=== PATIENT | female | born 1980 | race Caucasian/White ===

== ENCOUNTER → 2017-11-17 | Outpatient (CLI) | payer OTHER ==
[~2017-11-17] MED LIST: Augmentin 875-1 EACH PO; LEVSOD50 PO; MELA3 PO; Verotin-Gr Cap1 EACH PO
== END ==
LOC: OLS 09:58
DX: Z34.82 Encounter for supervision of other normal pregnancy, second trimester (principal); Z3A.27 27 weeks gestation of pregnancy
CPT/HCPCS: 36415; 82947; 82951; 82952

== ENCOUNTER → 2018-01-06 | Outpatient (CLI) | payer OTHER | END | disposition home or self-care (01) | LOC: LAB SHORT 17:25 → LAB 17:25 | DX: Z34.83 Encounter for supervision of other normal pregnancy, third trimester (principal); Z3A.35 35 weeks gestation of pregnancy | CPT/HCPCS: 87081; 87653 ==

== ENCOUNTER 2018-01-12 14:44 | Inpatient (IN) | payer OTHER ==
[~2018-01-12] VITALS: Ht 167.6 cm; Wt 97.1 kg
[~2018-01-12 14:44] MED LIST changes: -LEVSOD50 PO; -MELA3 PO; -Verotin-Gr Cap1 EACH PO
[2018-01-12 16:06] LABS: BASOPHILS ABSOLUTE AUTO 0.02 K/mm3 (0.00-0.23); BASOPHILS PERCENT AUTO 0 % (0-2); EOSINOPHILS ABSOLUTE AUTO 0.01 K/mm3 (0.00-0.68); EOSINOPHILS PERCENT AUTO 0 % (0-6); Hematocrit 35.8 % (33.0-51.0); Hemoglobin 11.9 g/dL (11.5-16.0); IMMATURE GRAN ABSOLUTE AUTO 0.03 K/mm3 (0.00-0.10); IMMATURE GRAN PERCENT AUTO 0 % (0-1); LYMPHOCYTES ABSOLUTE AUTO 1.28 K/mm3 (0.84-5.20); LYMPHOCYTES PERCENT AUTO 14 % (21-46); MONOCYTES ABSOLUTE AUTO 0.32 K/mm3 (0.16-1.47); MONOCYTES PERCENT AUTO 3 % (4-13); Mean Corpuscular HGB 30.5 pg (26.0-34.0); Mean Corpuscular HGB Conc 33.2 g/dL (31.5-36.5); Mean Corpuscular Volume 92 fL (80-100); Mean Platelet Volume 12.4 fL (9.1-12.4); NEUTROPHILS ABSOLUTE AUTO 7.75 K/mm3 (1.96-9.15); NEUTROPHILS PERCENT AUTO 82 % (41-73); Platelet Count 174 K/mm3 (150-400); RDW Coefficient Variation 12.8 % (11.7-14.2); RDW Standard Deviation 42.9 fL (35.1-46.3); White Blood Cell Count 9.41 K/mm3 (4.00-11.30)
[2018-01-12] MEDS ORDERED: Verotin-Gr Cap1 EACH PO (17:22)
[2018-01-12] MEDS ORDERED: LEVSOD50 PO (17:24)
[2018-01-12] MEDS ORDERED: MELA3 PO (19:35)
[2018-01-13 05:30] LABS: BASOPHILS ABSOLUTE AUTO 0.02 K/mm3 (0.00-0.23); BASOPHILS PERCENT AUTO 0 % (0-2); EOSINOPHILS ABSOLUTE AUTO 0.06 K/mm3 (0.00-0.68); EOSINOPHILS PERCENT AUTO 1 % (0-6); Hematocrit 31.5 % (33.0-51.0); Hemoglobin 10.6 g/dL (11.5-16.0); IMMATURE GRAN ABSOLUTE AUTO 0.06 K/mm3 (0.00-0.10); IMMATURE GRAN PERCENT AUTO 1 % (0-1); LYMPHOCYTES ABSOLUTE AUTO 2.82 K/mm3 (0.84-5.20); LYMPHOCYTES PERCENT AUTO 28 % (21-46); MONOCYTES ABSOLUTE AUTO 0.95 K/mm3 (0.16-1.47); MONOCYTES PERCENT AUTO 10 % (4-13); Mean Corpuscular HGB Conc 33.7 g/dL (31.5-36.5); Mean Corpuscular Volume 92 fL (80-100); Mean Platelet Volume 11.8 fL (9.1-12.4); NEUTROPHILS ABSOLUTE AUTO 6.02 K/mm3 (1.96-9.15); NEUTROPHILS PERCENT AUTO 61 % (41-73); Platelet Count 169 K/mm3 (150-400); RDW Coefficient Variation 12.7 % (11.7-14.2); RDW Standard Deviation 42.5 fL (35.1-46.3); Red Blood Cell Count 3.42 M/mm3 (3.80-5.20); White Blood Cell Count 9.93 K/mm3 (4.00-11.30)
== END 2018-01-13 21:00 | disposition home or self-care (01) | DRG 775 ==
LOC: BC 14:44 → OBS 14:44 → BC 15:19
PROVIDERS: Obstetrics & Gynecology
PROC: 10E0XZZ Delivery of Products of Conception, External Approach (ICD-10-PCS; principal; 2018-01-12)
PROC: 0HQ9XZZ Repair Perineum Skin, External Approach (ICD-10-PCS; 2018-01-12)
PROC: 3E0R3BZ Introduction of Anesthetic Agent into Spinal Canal, Percutaneous Approach (ICD-10-PCS; 2018-01-12)
DX: O60.14X0 Preterm labor third trimester with preterm delivery third trimester, not applicable or unspecified (principal); O34.219 Maternal care for unspecified type scar from previous cesarean delivery; O24.420 Gestational diabetes mellitus in childbirth, diet controlled; O70.0 First degree perineal laceration during delivery; Z3A.36 36 weeks gestation of pregnancy; Z37.0 Single live birth; O99.284 Endocrine, nutritional and metabolic diseases complicating childbirth; E03.9 Hypothyroidism, unspecified; Z87.891 Personal history of nicotine dependence
CPT/HCPCS: 36415; 81003; 82947; 85025; J1885; J2590; J3010; J7120

== ENCOUNTER 2021-07-01 17:35 | Inpatient (IN) | payer OTHER ==
[~2021-07-01] VITALS: Ht 167.6 cm; Wt 95.4 kg
[~2021-07-01 17:35] MED LIST changes: +LEVSOD50 PO; +MELA3 PO; +Verotin-Gr Cap1 EACH PO
[2021-07-01 18:10] LABS: BASOPHILS ABSOLUTE AUTO 0.02 K/mm3 (0.00-0.23); BASOPHILS PERCENT AUTO 0 % (0-2); EOSINOPHILS ABSOLUTE AUTO 0.01 K/mm3 (0.00-0.68); EOSINOPHILS PERCENT AUTO 0 % (0-6); Hemoglobin 13.3 g/dL (11.5-16.0); IMMATURE GRAN ABSOLUTE AUTO 0.06 K/mm3 (0.00-0.10); IMMATURE GRAN PERCENT AUTO 1 % (0-1); LYMPHOCYTES ABSOLUTE AUTO 0.88 K/mm3 (0.84-5.20); LYMPHOCYTES PERCENT AUTO 11 % (21-46); MONOCYTES ABSOLUTE AUTO 0.47 K/mm3 (0.16-1.47); MONOCYTES PERCENT AUTO 6 % (4-13); Mean Corpuscular HGB 30.6 pg (26.0-34.0); Mean Corpuscular HGB Conc 33.3 g/dL (31.5-36.5); Mean Corpuscular Volume 92 fL (80-100); Mean Platelet Volume 10.1 fL (9.1-12.4); NEUTROPHILS ABSOLUTE AUTO 6.38 K/mm3 (1.96-9.15); NEUTROPHILS PERCENT AUTO 82 % (41-73); Platelet Count 229 K/mm3 (150-400); RDW Coefficient Variation 11.7 % (11.7-14.2); RDW Standard Deviation 39.8 fL (35.1-46.3); Red Blood Cell Count 4.34 M/mm3 (3.80-5.20); White Blood Cell Count 7.82 K/mm3 (4.00-11.30)
[2021-07-01 18:39] LABS: Alanine Aminotransfer (ALT/SGP 113 U/L (12-78); Albumin, Blood 3.4 g/dL (3.4-5.0); Albumin/Globulin Ratio 0.8 (0.8-1.8); Alk Phos 209 U/L (50-136); Anion Gap 8 mmol/L (6-16); Aspartate Aminotrans (AST/SGOT 112 U/L (12-37); Bilirubin, Total 3.1 mg/dL (0.1-1.0); Blood Urea Nitrogen 4 mg/dL (8-24); Bun/Creatinine Ratio 8.8 (12.0-20.0); CO2, Blood 23 mmol/L (21-32); Chloride, Blood 107 mmol/L (98-108); Creatinine, Blood 0.46 mg/dL (0.40-1.00); Globulin, Blood 4.4 g/dL (2.2-4.0); Glomerular Filtration Rate >60 (60-); Glucose, Blood 94 mg/dL (70-99); Potassium, Blood 3.8 mmol/L (3.5-5.5); Sodium, Blood 138 mmol/L (136-145); Total Protein, Blood 7.8 g/dL (6.4-8.2); Troponin I <0.015 ng/mL (0.000-0.040)
[2021-07-02 04:58] LABS: SARS-Cov-2 (COVID-19) PCR, MMC NEGATIVE (NEGATIVE)
[2021-07-02 05:28] LABS: BASOPHILS ABSOLUTE AUTO 0.01 K/mm3 (0.00-0.23); BASOPHILS PERCENT AUTO 0 % (0-2); EOSINOPHILS ABSOLUTE AUTO 0.06 K/mm3 (0.00-0.68); EOSINOPHILS PERCENT AUTO 1 % (0-6); Hematocrit 32.1 % (33.0-51.0); Hemoglobin 10.8 g/dL (11.5-16.0); IMMATURE GRAN ABSOLUTE AUTO 0.04 K/mm3 (0.00-0.10); IMMATURE GRAN PERCENT AUTO 1 % (0-1); LYMPHOCYTES ABSOLUTE AUTO 1.51 K/mm3 (0.84-5.20); LYMPHOCYTES PERCENT AUTO 25 % (21-46); MONOCYTES ABSOLUTE AUTO 0.54 K/mm3 (0.16-1.47); MONOCYTES PERCENT AUTO 9 % (4-13); Mean Corpuscular HGB Conc 33.6 g/dL (31.5-36.5); Mean Corpuscular Volume 92 fL (80-100); Mean Platelet Volume 10.4 fL (9.1-12.4); NEUTROPHILS ABSOLUTE AUTO 3.94 K/mm3 (1.96-9.15); NEUTROPHILS PERCENT AUTO 64 % (41-73); Platelet Count 178 K/mm3 (150-400); RDW Coefficient Variation 11.9 % (11.7-14.2); RDW Standard Deviation 40.5 fL (35.1-46.3); Red Blood Cell Count 3.48 M/mm3 (3.80-5.20)
[2021-07-02 06:25] LABS: Alanine Aminotransfer (ALT/SGP 96 U/L (12-78); Albumin, Blood 2.4 g/dL (3.4-5.0); Albumin/Globulin Ratio 0.7 (0.8-1.8); Alk Phos 165 U/L (50-136); Anion Gap 8 mmol/L (6-16); Aspartate Aminotrans (AST/SGOT 83 U/L (12-37); Bilirubin, Total 3.2 mg/dL (0.1-1.0); Blood Urea Nitrogen 2 mg/dL (8-24); Bun/Creatinine Ratio 5.2 (12.0-20.0); CO2, Blood 22 mmol/L (21-32); Calcium, Blood 7.9 mg/dL (8.5-10.1); Chloride, Blood 111 mmol/L (98-108); Creatinine, Blood 0.39 mg/dL (0.40-1.00); Globulin, Blood 3.4 g/dL (2.2-4.0); Glomerular Filtration Rate >60 (60-); Glucose, Blood 98 mg/dL (70-99); Potassium, Blood 3.2 mmol/L (3.5-5.5); Sodium, Blood 141 mmol/L (136-145); Total Protein, Blood 5.8 g/dL (6.4-8.2)
--- NOTE | 2021-07-02 10:37 | NUR ---
TRANSFER CARE NOTE: ASSUMED CARE OF PT AT 0700. PT IS ALERT AND ORIENTEDX4, ABLE TO COMMUNICATE NEEDS. PT C/O PAIN 02/01, PAIN MEDS GIVEN PER EMAR, REASSESSMENT OF PAIN 12/02. PT IN NSR WITH HR IN THE 80'S, BP STABLE, AFEBRILE. PT ON RA WITH SPO2 ABOVE 90% ABD TENDER TO PALPATION, ACTIVE BT TO ALL QUADRANTS. PT WALKED TO RESTROOM TO VOID, STEADY ON HER FEET, NO ASSISTANCE NEEDED. PT TRANSFERED TO ROOM 233, REPORT GIVEN TO REEMA WALDEN.
--- NOTE | 2021-07-02 10:55 | NUR ---
ARRIVED FROM ED, ORIENTED TO ROOM AND CALL SYSTEM, DENIES ANY NEED FOR PAIN MEDS AT THIS TIME, REPORTS HAVING SLIGHT NAUSEA, MEDICATED W/ ZOFRAN PRIOR TO ED DEPARTURE PER WIN MADRIGAL, MONITOR FOR ANY CHANGES.
--- NOTE | 2021-07-02 18:38 | NUR ---
RESTING IN BED, DENIES ANY NEED FOR PAIN MEDS AT THIS TIME, DENIES ANY NAUSEA, MEDICATED ONCE TODAY FOR PAIN AND NAUSEA PER EMAR, INDEPENDENT TO THE BATHROOM, NO ACUTE CHANGES THIS SHIFT.
[2021-07-03 05:20] LABS: BASOPHILS ABSOLUTE AUTO 0.02 K/mm3 (0.00-0.23); BASOPHILS PERCENT AUTO 0 % (0-2); EOSINOPHILS ABSOLUTE AUTO 0.09 K/mm3 (0.00-0.68); EOSINOPHILS PERCENT AUTO 2 % (0-6); Hematocrit 32.3 % (33.0-51.0); Hemoglobin 10.9 g/dL (11.5-16.0); IMMATURE GRAN ABSOLUTE AUTO 0.04 K/mm3 (0.00-0.10); IMMATURE GRAN PERCENT AUTO 1 % (0-1); LYMPHOCYTES ABSOLUTE AUTO 1.37 K/mm3 (0.84-5.20); LYMPHOCYTES PERCENT AUTO 23 % (21-46); MONOCYTES ABSOLUTE AUTO 0.45 K/mm3 (0.16-1.47); MONOCYTES PERCENT AUTO 8 % (4-13); Mean Corpuscular HGB 31.2 pg (26.0-34.0); Mean Corpuscular HGB Conc 33.7 g/dL (31.5-36.5); Mean Corpuscular Volume 93 fL (80-100); NEUTROPHILS ABSOLUTE AUTO 4.03 K/mm3 (1.96-9.15); NEUTROPHILS PERCENT AUTO 67 % (41-73); Platelet Count 191 K/mm3 (150-400); RDW Coefficient Variation 12.1 % (11.7-14.2); RDW Standard Deviation 40.8 fL (35.1-46.3); Red Blood Cell Count 3.49 M/mm3 (3.80-5.20)
[2021-07-03 05:39] LABS: Alanine Aminotransfer (ALT/SGP 95 U/L (12-78); Albumin, Blood 2.4 g/dL (3.4-5.0); Albumin/Globulin Ratio 0.7 (0.8-1.8); Alk Phos 166 U/L (50-136); Anion Gap 8 mmol/L (6-16); Aspartate Aminotrans (AST/SGOT 59 U/L (12-37); Blood Urea Nitrogen 3 mg/dL (8-24); Bun/Creatinine Ratio 6.6 (12.0-20.0); CO2, Blood 22 mmol/L (21-32); Calcium, Blood 8.4 mg/dL (8.5-10.1); Chloride, Blood 110 mmol/L (98-108); Creatinine, Blood 0.46 mg/dL (0.40-1.00); Globulin, Blood 3.5 g/dL (2.2-4.0); Glomerular Filtration Rate >60 (60-); Glucose, Blood 77 mg/dL (70-99); Potassium, Blood 3.2 mmol/L (3.5-5.5); Sodium, Blood 140 mmol/L (136-145); Total Protein, Blood 5.9 g/dL (6.4-8.2)
--- NOTE | 2021-07-03 07:04 | NUR ---
SUMMARY PT SLEEPING THIS AM.PT HAS NEW POWER GLIDE.TELE ON TONIGHT PER ORDERS.SR
--- NOTE | 2021-07-03 07:49 | NUR ---
PT LYING IN BED, SLEEPY DENIES ANY NEED FOR PAIN MEDS AT THIS TIME, DENIES ANY NAUSEA, CONT. TO MONITOR FOR ANY CHANGES.
--- NOTE | 2021-07-03 18:55 | NUR ---
PT HAD ABD MRI TODAY, STATES PAIN IS "OK" TODAY, MEDICATED X2 FOR PAIN, REPORTS HAVING SOME NAUSEA WITH PAIN BUT BETTER AFTER GETTING PAIN MEDS, AMBULATES INDEPENDENTLY, NO ACUTE CHANGES THIS SHIFT.
[2021-07-04 04:32] LABS: Hematocrit 31.3 % (33.0-51.0); Hemoglobin 10.5 g/dL (11.5-16.0); Mean Corpuscular HGB 31.1 pg (26.0-34.0); Mean Corpuscular HGB Conc 33.5 g/dL (31.5-36.5); Mean Corpuscular Volume 93 fL (80-100); Mean Platelet Volume 9.9 fL (9.1-12.4); Platelet Count 185 K/mm3 (150-400); RDW Coefficient Variation 11.9 % (11.7-14.2); RDW Standard Deviation 40.5 fL (35.1-46.3); Red Blood Cell Count 3.38 M/mm3 (3.80-5.20); White Blood Cell Count 6.23 K/mm3 (4.00-11.30)
[2021-07-04 04:50] LABS: Alanine Aminotransfer (ALT/SGP 89 U/L (12-78); Albumin, Blood 2.3 g/dL (3.4-5.0); Albumin/Globulin Ratio 0.7 (0.8-1.8); Alk Phos 145 U/L (50-136); Anion Gap 6 mmol/L (6-16); Aspartate Aminotrans (AST/SGOT 50 U/L (12-37); Bilirubin, Total 0.6 mg/dL (0.1-1.0); Blood Urea Nitrogen 4 mg/dL (8-24); Bun/Creatinine Ratio 9.8 (12.0-20.0); CO2, Blood 25 mmol/L (21-32); Calcium, Blood 8.1 mg/dL (8.5-10.1); Chloride, Blood 109 mmol/L (98-108); Creatinine, Blood 0.41 mg/dL (0.40-1.00); Globulin, Blood 3.5 g/dL (2.2-4.0); Glomerular Filtration Rate >60 (60-); Glucose, Blood 90 mg/dL (70-99); Magnesium, Blood 1.6 mg/dL (1.6-2.4); Sodium, Blood 140 mmol/L (136-145); Total Protein, Blood 5.8 g/dL (6.4-8.2)
--- NOTE | 2021-07-04 04:59 | NUR ---
PT HAD UNEVENTFUL NIGHT, APPEARED TO SLEEP FOR MAJORITY OF NIGHT. VSS, HR SINUS 60'S PER TELE MONITOR. R ABD REMAINS PAINFUL, PT REP INC PAIN W/MVMT. PT MED FOR ABD PAIN X1. BT HYPO, PT REP +FLAUTS, DENIED N/V. PT REMAINS NPO, IVF CONT PER ORDERS. PT UP INDEP IN ROOM, DENIES DIZZINESS WHEN UP.
--- NOTE | 2021-07-04 10:33 | NUR ---
[facility]. All jewelry removed except for wedding rings. Telemetry and clothing removed, pt. void prior to departure for test.
--- NOTE | 2021-07-04 10:48 | NUR ---
Pre-Op teaching done. Pt verbalizes understanding. History, Chart, Medications and Allergies reviewed before start of procedure.Patient confirms NPO status and agrees with scheduled surgery.
--- NOTE | 2021-07-04 11:12 | NUR ---
DR SEALS NOTIFIED OF POSITIVE HCG, SURGERY ON HOLD UNTIL BLOOD HCG TEST RESULTS COME BACK
[2021-07-04 11:35] LABS: Anion Gap 4 mmol/L (6-16); Blood Urea Nitrogen 4 mg/dL (8-24); Bun/Creatinine Ratio 8.8 (12.0-20.0); CO2, Blood 26 mmol/L (21-32); Calcium, Blood 7.9 mg/dL (8.5-10.1); Chloride, Blood 109 mmol/L (98-108); Creatinine, Blood 0.45 mg/dL (0.40-1.00); Glomerular Filtration Rate >60 (60-); Glucose, Blood 82 mg/dL (70-99); Potassium, Blood 3.5 mmol/L (3.5-5.5); Sodium, Blood 139 mmol/L (136-145)
--- NOTE | 2021-07-04 12:30 | NUR ---
pT. BACK TO ROOM AT 1210, NO SURGERY AT THIS TIME. ULTRA SOUND ORDERED.
--- NOTE | 2021-07-04 14:57 | NUR ---
PT BACK TO [facility] VIA GURNEY FROM SURG FLOOR POST ULTRASOUND. History, Chart, Medications and Allergies reviewed before start of procedure.Patient confirms NPO status and agrees with scheduled surgery. Lungs clear T/O to Auscultation.
--- NOTE | 2021-07-04 15:01 | NUR ---
Pt. downstairs via gurney at 1450. Remained NPO for surgery.
--- NOTE | 2021-07-04 18:59 | NUR ---
1857- DOPPLER FHT 132/MINUTE PER WIN BOYD FROM THE [facility].
--- NOTE | 2021-07-04 19:30 | NUR ---
PT ARRIVED FROM PACU AT APPROX 1930. TRANSFERED TO BED VIA SLIDER SHEET. PT MOANING/GROANING IN PAIN DURING TRANSFER, APPEARING DROWSY. VSS. TELE IN PLACE. LAP SITES C/D/I. FE DRAIN TO RLQ WITH A SCANT AMOUNT OF SS DRG IN BULB. BULB COMPRESSED.
[2021-07-05 05:47] LABS: Hematocrit 31.4 % (33.0-51.0); Hemoglobin 10.5 g/dL (11.5-16.0); Mean Corpuscular HGB 30.6 pg (26.0-34.0); Mean Corpuscular HGB Conc 33.4 g/dL (31.5-36.5); Mean Corpuscular Volume 92 fL (80-100); Mean Platelet Volume 10.4 fL (9.1-12.4); Platelet Count 209 K/mm3 (150-400); RDW Coefficient Variation 11.7 % (11.7-14.2); Red Blood Cell Count 3.43 M/mm3 (3.80-5.20)
[2021-07-05 06:20] LABS: Alanine Aminotransfer (ALT/SGP 98 U/L (12-78); Albumin, Blood 2.3 g/dL (3.4-5.0); Albumin/Globulin Ratio 0.6 (0.8-1.8); Alk Phos 132 U/L (50-136); Anion Gap 5 mmol/L (6-16); Aspartate Aminotrans (AST/SGOT 64 U/L (12-37); Bilirubin, Total 0.5 mg/dL (0.1-1.0); Blood Urea Nitrogen 4 mg/dL (8-24); CO2, Blood 24 mmol/L (21-32); Calcium, Blood 7.9 mg/dL (8.5-10.1); Chloride, Blood 109 mmol/L (98-108); Globulin, Blood 3.6 g/dL (2.2-4.0); Glomerular Filtration Rate >60 (60-); Glucose, Blood 120 mg/dL (70-99); Potassium, Blood 3.8 mmol/L (3.5-5.5); Sodium, Blood 138 mmol/L (136-145); Total Protein, Blood 5.9 g/dL (6.4-8.2)
--- NOTE | 2021-07-05 07:45 | NUR ---
SHIFT SUMMARY: PT POD#1 FOR A LAP TACO. LAP SITES C/D/I WITH STERI STRIPS. FE IN PLACE TO RUQ. 45CC SANGUINOUS DRG EMPTIED THIS SHIFT. HYPOACTIVE BT THROUGHOUT. PT DENIES PASSING FLATUS. TOLERATING CLEARS. DENIES N/V. PT PAINFUL THIS SHIFT. BEING MEDICATED WITH PO PAIN MEDS PER EMAR. PT OUT OF BED TO BSC WITH MINIMAL ASSIST. VOIDING WELL. IVF INFUSING PER ORDERS.
--- NOTE | 2021-07-05 15:08 | NUR ---
PT UP AND AMBULATE IN HALLWAY TODAY, AT SIDE, TOLERATE WELL. TAKING PO WELL WITH NO C/O NAUSEA. REMAINS GUARDED AND STIFF WITH MOVEMENT. ENCOURAGED TO USE PILLOW FOR SPLINTING, COUGHT AND DEEP BREATHE. VOIDING WELL. TAKING ONE NORCO FOR PAIN 5/10, WITH MOVEMENT.
--- NOTE | 2021-07-06 06:27 | NUR ---
VSS. PT ABLE TO AMBULATE IND TO BR. C/O PAIN, GIVEN PO NORCO-SEE EMAR. LAP SITES INTACT. FE DRAIN INSERTION SITE CDI. FE DRAIN OUTPUT, 25ML THROUGHOUT SHIFT. LIKELY D/C TODAY, 07/06. NO ISSUES OVERNIGHT.
[2021-07-06 09:58] LABS: Alanine Aminotransfer (ALT/SGP 80 U/L (12-78); Albumin, Blood 2.5 g/dL (3.4-5.0); Albumin/Globulin Ratio 0.8 (0.8-1.8); Alk Phos 131 U/L (50-136); Anion Gap 7 mmol/L (6-16); Aspartate Aminotrans (AST/SGOT 34 U/L (12-37); Bilirubin, Total 0.5 mg/dL (0.1-1.0); Blood Urea Nitrogen 4 mg/dL (8-24); Bun/Creatinine Ratio 9.6 (12.0-20.0); CO2, Blood 24 mmol/L (21-32); Calcium, Blood 8.3 mg/dL (8.5-10.1); Chloride, Blood 108 mmol/L (98-108); Creatinine, Blood 0.42 mg/dL (0.40-1.00); Globulin, Blood 3.3 g/dL (2.2-4.0); Glomerular Filtration Rate >60 (60-); Glucose, Blood 117 mg/dL (70-99); Potassium, Blood 3.6 mmol/L (3.5-5.5); Sodium, Blood 139 mmol/L (136-145); Total Protein, Blood 5.8 g/dL (6.4-8.2)
[2021-07-06] MEDS ORDERED: ACET325 PO (10:48)
[2021-07-06] MEDS ORDERED: LORCET 5-325 M1 EACH PO (10:51)
[2021-07-06] MEDS ORDERED: PRENATAL TABLE1 EAC2 PO (10:52)
--- NOTE | 2021-07-06 14:08 | NUR ---
DISCHARGE SUMMARY PT A/O X4 AND IND IN THE ROOM. PT UP AND VOIDING AND PASSING GAS. HAS NOT HAD A BM. REPORTED PAIN X1 THIS SHIFT AND TREATED PER EMR. INSTRUCTED ON FE DRAIN CARE AND INSTRUCTED TO FOLLOW UP WITH DR. SEALS FOR REMOVAL. DC'D HOME WITH .
== END 2021-07-06 13:30 | disposition home or self-care (01) | DRG 818 ==
LOC: ER 17:35 → ERHOLD 22:55 → SURS 22:55
PROVIDERS: Emergency Medicine; Internal Medicine; Physician Assistant; Surgery; ADMIT Internal Medicine
PROC: 3E02340 Introduction of Influenza Vaccine into Muscle, Percutaneous Approach (ICD-10-PCS; 2021-07-01)
PROC: 0FT44ZZ Resection of Gallbladder, Percutaneous Endoscopic Approach (ICD-10-PCS; principal; 2021-07-04 15:15)
DX: O26.612 Liver and biliary tract disorders in pregnancy, second trimester (principal); K80.65 Calculus of gallbladder and bile duct with chronic cholecystitis with obstruction; E66.9 Obesity, unspecified; E87.6 Hypokalemia; Z66 Do not resuscitate; E03.9 Hypothyroidism, unspecified; Z98.890 Other specified postprocedural states; Z87.891 Personal history of nicotine dependence; Z20.822 Contact with and (suspected) exposure to COVID-19; Z23 Encounter for immunization; Z79.899 Other long term (current) drug therapy; Z68.35 Body mass index [BMI] 35.0-35.9, adult; O99.212 Obesity complicating pregnancy, second trimester; O99.282 Endocrine, nutritional and metabolic diseases complicating pregnancy, second trimester; Z3A.15 15 weeks gestation of pregnancy
CPT/HCPCS: 36415; 71046; 74181; 76705; 76815; 80048; 80053; 83690; 83735; 84145; 84484; 84702; 85025; 85027; 88304; 93005; 93010; 96374; 96375; 99285-25; A9270; C1751; J0690; J1100; J1170; J1650; J1885; J2370; J2405; J2704; J2710; J3010; J7030; J7042; J7120; U0004

== ENCOUNTER → 2021-11-27 | Outpatient (CLI) | payer OTHER ==
[~2021-11-27] MED LIST changes: +ACET325 PO; +LORCET 5-325 M1 EACH PO; +PRENATAL TABLE1 EAC2 PO
== END | disposition home or self-care (01) ==
LOC: LAB SHORT 11:12 → LAB 11:12
DX: O99.891 Other specified diseases and conditions complicating pregnancy (principal); R82.90 Unspecified abnormal findings in urine; Z3A.36 36 weeks gestation of pregnancy
CPT/HCPCS: 87081; 87086; 87150

== ENCOUNTER 2022-02-05 06:08 | Day surgery (SDC) | payer OTHER ==
[~2022-02-05] VITALS: Ht 167.6 cm; Wt 93.4 kg
--- NOTE | 2022-02-05 07:04 | NUR ---
02/05/22 0704 Elin Naik CALL LIGHT WITHIN REACH
== END 2022-02-05 09:52 | disposition home or self-care (01) ==
LOC: ORSCSDS 06:08
PROVIDERS: Obstetrics & Gynecology
PROC: 0U574ZZ Destruction of Bilateral Fallopian Tubes, Percutaneous Endoscopic Approach (ICD-10-PCS; principal; 2022-02-05 07:30)
DX: Z30.2 Encounter for sterilization (principal); E28.2 Polycystic ovarian syndrome; E88.81 Metabolic syndrome and other insulin resistance; F32.A Depression, unspecified; Z87.891 Personal history of nicotine dependence
CPT/HCPCS: J0171; J1100; J1885; J2250; J2405; J2704; J3010; J7120

== ENCOUNTER → 2024-08-26 | Outpatient (CLI) | payer OTHER ==
[2024-08-26 17:23] LABS: BASOPHILS ABSOLUTE AUTO 0.03 K/mm3 (0.00-0.23); BASOPHILS PERCENT AUTO 0 % (0-2); EOSINOPHILS ABSOLUTE AUTO 0.28 K/mm3 (0.00-0.68); EOSINOPHILS PERCENT AUTO 4 % (0-6); Hematocrit 40.1 % (33.0-51.0); Hemoglobin 13.3 g/dL (11.5-16.0); IMMATURE GRAN ABSOLUTE AUTO 0.04 K/mm3 (0.00-0.10); IMMATURE GRAN PERCENT AUTO 1 % (0-1); LYMPHOCYTES ABSOLUTE AUTO 2.43 K/mm3 (0.84-5.20); LYMPHOCYTES PERCENT AUTO 31 % (21-46); MONOCYTES ABSOLUTE AUTO 0.55 K/mm3 (0.16-1.47); MONOCYTES PERCENT AUTO 7 % (4-13); Mean Corpuscular HGB 30.9 pg (26.0-34.0); Mean Corpuscular HGB Conc 33.2 g/dL (31.5-36.5); Mean Corpuscular Volume 93 fL (80-100); Mean Platelet Volume 10.1 fL (9.1-12.4); NEUTROPHILS ABSOLUTE AUTO 4.61 K/mm3 (1.96-9.15); NEUTROPHILS PERCENT AUTO 58 % (41-73); Platelet Count 228 K/mm3 (150-400); RDW Coefficient Variation 12.4 % (11.7-14.2); RDW Standard Deviation 42.5 fL (35.1-46.3); White Blood Cell Count 7.94 K/mm3 (4.00-11.30)
[2024-08-26 17:37] LABS: Albumin, Blood 3.6 g/dL (3.4-5.0); Bilirubin, Total 0.2 mg/dL (0.1-1.0); Bun/Creatinine Ratio 18.2 (12.0-20.0); Calcium, Blood 8.8 mg/dL (8.5-10.1); Creatinine, Blood 0.66 mg/dL (0.40-1.00); Globulin, Blood 3.7 g/dL (2.2-4.0); Total Protein, Blood 7.3 g/dL (6.4-8.2)
== END | disposition home or self-care (01) ==
LOC: LAB 17:18 → LAB SHORT 17:18
PROVIDERS: Physician Assistant Surgical
DX: R07.89 Other chest pain (principal)
CPT/HCPCS: 80053; 83690; 84484; 85025; 85379